=== PATIENT | male | born 1955 | race Caucasian/White ===

== ENCOUNTER → 2024-12-31 07:32 | Outpatient (CLI) | payer MEDICARE, OTHER, SELFPAY ==
--- NOTE | 2024-12-31 07:36 | DI.US.S_ITS ---
PROCEDURE: US ABDOMEN LIMITED INDICATIONS: ABN LIVER ENZYMES TECHNIQUE: Real-time scanning was performed of the abdominal and retroperitoneal organs, with image documentation. COMPARISON: None. FINDINGS: Liver: Liver is normal in size and homogeneous in echotexture. Right liver measures 16 cm in length. Main portal vein measures 1.3 cm in diameter.. And Gallbladder: No gallstones. No wall thickening. No pericholecystic edema. Negative sonographic Hardwick's sign. Biliary ducts: Intrahepatic bile ducts are non-dilated. Extrahepatic bile duct caliber measures 4 mm. Normal is 6-7 mm or less in diameter, or 10 mm or less post-cholecystectomy. Pancreas: Limited visualization of the distal pancreas due to bowel gas. Given the limitations, no gross abnormality detected. Miscellaneous: No free abdominal fluid. Study limited due to bowel gas. IMPRESSION: Study limited by bowel gas. Given the limitations, no focal liver, gallbladder or common bile duct abnormality. Limited visualization of the pancreas due to bowel gas. Dictated by: Martha Dao M.D. on 12/31/2024 at 11:28 Approved by: Martha Dao M.D. on 12/31/2024 at 11:31
== END ==
PROVIDERS: PCP Family Medicine; Referring Provider Family Medicine; Visit Provider Family Medicine
DX: R74.8 Abnormal levels of other serum enzymes (principal); R11.0 Nausea
CPT/HCPCS: 76705